=== PATIENT | female | born 1950 | race Caucasian/White ===

== ENCOUNTER 2017-04-23 20:50 | Outpatient (CLI) | payer MEDICARE | END 2017-04-23 20:51 | disposition critical access hospital (66) | LOC: EMS 20:50 | PROVIDERS: ATTEND Surgery | DX: R53.1 Weakness (principal); R26.89 Other abnormalities of gait and mobility; R05 Cough | CPT/HCPCS: A0425; A0427 ==

== ENCOUNTER 2017-04-23 21:22 | Emergency (ER) | payer MEDICARE ==
[2017-04-23] MEDS ORDERED: SODIUM CHLORIDE 0.9% 1,000 ML IV ONE ×4 (21:31→22:46)
[2017-04-23] MEDS ORDERED: methylPREDNISolone SUCCINATE 125 MG/2 ML VIAL IVP STA (21:32)
[2017-04-23] MEDS ORDERED: IPRATROPIUM/ALBUTEROL 3 ML NEB INH STA (21:32)
[2017-04-23 21:55] LABS: BASOPHILS % (AUTO) 0.7 %; EOSINOPHILS # (AUTO) 0.1 10^3/uL (0.0-0.7); EOSINOPHILS % (AUTO) 1.2 %; HGB - HEMOGLOBIN 8.6 g/dL (12.0-16.0); LYMPHOCYTES # (AUTO) 1.6 10^3/uL (1.5-3.5); LYMPHOCYTES % (AUTO) 22.6 %; MEAN CORPUSCULAR HEMOGLOBIN 38.9 pg (27.0-31.0); MEAN CORPUSCULAR HGB CONC 34.1 g/dL (32.0-36.0); MEAN CORPUSCULAR VOLUME 114.1 fL (81.0-99.0); MEAN PLATELET VOLUME 7.1 fL (7.9-10.8); MONOCYTES # (AUTO) 0.8 10^3/uL (0.0-1.0); MONOCYTES % (AUTO) 10.7 %; NEUTROPHILS # (AUTO) 4.7 10^3/uL (1.5-6.6); NEUTROPHILS % (AUTO) 64.8 %; PLT - PLATELET COUNT 244 10^3/uL (130-450); RED CELL DISTRIBUTION WIDTH 13.5 % (12.0-15.0); WHITE BLOOD COUNT 7.2 x10^3/uL (4.8-10.8)
--- NOTE | 2017-04-23 21:56 | ED Physician Documentation ---
PD HPI URI - Stated complaint Stated Complaint: COUGH, WEAKNESS, HYPOTENSION - Chief complaint Chief Complaint: Resp - History obtained from History obtained from: Patient, EMS - History of Present Illness Timing - onset: How many days ago (3) Timing duration: Days (3) Timing details: Gradual onset Pain level max: 8 Pain level now: 8 Associated symptoms: Nasal congestion, Rhinorrhea, Dry cough. No: Fever, Chills , Hemoptysis, Chest pain, Dyspnea Contributing factors: Sick contact, COPD / asthma Improves by: Rest, MDI/nebulizer (hasn't used her inhalers in 3 weeks) Worsened by: Activity, Breathing - Additional information Additional information: felt lightheaded and dizzy today. found to have hypotension on scene 80/40 given 500ml NS. no change. Review of Systems Ten Systems: 10 systems reviewed and negative Constitutional: denies: Fever, Chills Nose: reports: Rhinorrhea / runny nose, Congestion Cardiac: reports: Chest pain / pressure (tightness) Respiratory: reports: Dyspnea, Cough, Wheezing GI: denies: Abdominal Pain, Nausea, Vomiting, Diarrhea : denies: Dysuria Skin: denies: Rash Musculoskeletal: denies: Neck pain, Back pain Neurologic: denies: Headache PD PAST MEDICAL HISTORY - Past Medical History Past Medical History: Yes Respiratory: COPD Other Past Medical History: anemia, chronic renal disease - Present Medications Home Medications: Ambulatory Orders Medication Instructions Recorded Confirmed Albuterol Sulfate [Proair Hfa 2 puffs IH Q4HR PRN 04/23/17 04/23/17 Inhaler] Aspirin EC [Ecotrin] 1 tab PO DAILY 04/23/17 04/23/17 Atorvastatin Calcium 1 tab PO DAILY 04/23/17 04/23/17 Calcium Citrate/Vitamin D3 1 tab PO DAILY 04/23/17 04/23/17 [Calcium Citrate-Vit D3 Tablet] Cholecalciferol (Vitamin D3) 1 cap PO BID 04/23/17 04/23/17 [Vitamin D3] Cyanocobalamin (Vitamin B-12) 1 tab PO QPM 04/23/17 04/23/17 [Vitamin B-12] Doxepin HCl 1 cap PO BID 04/23/17 04/23/17 Duloxetine HCl 1 cap PO QPM 04/23/17 04/23/17 Ferrous Sulfate 1 tab PO QPM 04/23/17 04/23/17 Gabapentin 1 tab PO BID 04/23/17 04/23/17 Hydrocodone/Acetaminophen [Vicodin 1 tab PO TID 04/23/17 04/23/17 5-300 mg Tablet] Hydroxyurea 1 cap PO DAILY 04/23/17 04/23/17 Levothyroxine Sodium 1 tab PO DAILY 04/23/17 04/23/17 Metoprolol Succinate 1 tab PO QPM 04/23/17 04/23/17 Morphine ER 1 tab PO TID 04/23/17 04/23/17 SUMAtriptan succinate [Sumatriptan 100 mg PO DAILY 04/23/17 04/23/17 Succinate] Tizanidine HCl [Zanaflex] 1 cap PO TID 04/23/17 04/23/17 hydroCHLOROthiazide 1 tab PO DAILY 04/23/17 04/23/17 [Hydrochlorothiazide] raNITIdine HCl [Ranitidine HCl] 1 cap PO BID 04/23/17 04/23/17 - Allergies Allergies/Adverse Reactions: Allergies Allergy/AdvReac Type Severity Reaction Status Date / Time No Known Drug Allergies Allergy Verified 04/23/17 21:29 - Living Situation Living Situation: reports: With family Living Arrangement: reports: At home - Social History Does the pt smoke?: Yes Does the pt have substance abuse?: No - Family History Family history: reports: Non contributory PD ED PE NORMAL - Vitals Vital signs reviewed: Yes - General General: Alert and oriented X 3, No acute distress - HEENT HEENT: PERRL, Moist mucous membranes - Neck Neck: Supple, no meningeal sign - Cardiac Cardiac: RRR, Strong equal pulses - Respiratory Respiratory: No respiratory distress, Other (wheezing B) - Abdomen Abdomen: Soft, Non tender, Non distended - Derm Derm: Warm and dry, No rash - Extremities Extremities: No edema, No calf tenderness / cord - Neuro Neuro: Alert and oriented X 3 - Psych Psych: Normal mood Results - Vitals Vitals: Vital Signs - 24 hr 04/23/17 04/23/17 04/23/17 21:24 21:50 22:20 Temperature 36.4 C L Heart Rate 83 78 79 Respiratory 30 H 20 16 Rate Blood Pressure 80/56 L 115/99 H O2 Saturation 99 100 04/23/17 04/23/17 04/24/17 22:52 23:32 00:00 Temperature Heart Rate 75 78 Respiratory 13 22 Rate Blood Pressure 73/57 L 89/67 L 116/79 O2 Saturation 93 100 Oxygen O2 Source Nasal cannula Oxygen Flow Rate 4 - EKG (time done) 2127 Rate: Rate (enter#) (79) Rhythm: Sinus tachycardia Sarah: Normal Intervals: Normal MI QRS: Normal Ischemia: Normal ST segments - Labs Labs: Laboratory Tests 04/23/17 04/23/17 04/23/17 21:43 21:43 21:43 WBC 7.2 RBC 2.20 L Hgb 8.6 L Hct 25.1 L MCV 114.1 H MCH 38.9 H MCHC 34.1 RDW 13.5 Plt Count 244 MPV 7.1 L Neut # 4.7 Lymph # 1.6 Rock # 0.8 Eos # 0.1 Baso # 0.0 Absolute Nucleated RBC 0.00 Nucleated RBC % 0.0 Manual Slide Review Indicated Platelet Estimate NORMAL (130-450,000) RBC Morph Micro Appear 1+ STOMATOCYTES Sodium 130 L Potassium 4.4 Chloride 94 L Carbon Dioxide 19 L Anion Gap 17.0 H BUN 40 H Creatinine 3.4 H Estimated GFR (MDRD) 14 L Glucose 124 H Lactic Acid 1.8 Calcium 8.0 L Total Bilirubin 0.4 AST 43 H ALT 22 Alkaline Phosphatase 48 Troponin I Total Protein 6.3 L Albumin 3.5 Globulin 2.8 Albumin/Globulin Ratio 1.3 Lipase 20 L 04/23/17 21:43 WBC RBC Hgb Hct MCV MCH MCHC RDW Plt Count MPV Neut # Lymph # Rock # Eos # Baso # Absolute Nucleated RBC Nucleated RBC % Manual Slide Review Platelet Estimate RBC Morph Micro Appear Sodium Potassium Chloride Carbon Dioxide Anion Gap BUN Creatinine Estimated GFR (MDRD) Glucose Lactic Acid Calcium Total Bilirubin AST ALT Alkaline Phosphatase Troponin I 1.76 H* Total Protein Albumin Globulin Albumin/Globulin Ratio Lipase - Rads (name of study) cxr Radiology: Prelim report reviewed, EMP read contemporaneously, See rad report ( Left upper lobe emphysema. Improved aeration through the left lung base region. Blunting of the left lateral costophrenic sulcus region may be due to pleural thickening or scarring. Small effusion difficult to exclude. 3. There is a 9 mm right upper lobe paramediastinal nodule. This is indeterminate. Further assessment recommended with a nonemergent outpatient noncontrast chest CT. ) PD MEDICAL DECISION MAKING - ED course Complexity details: reviewed results, re-evaluated patient, considered differential, d/w patient, d/w healthcare network pricing consultant ED course: Patient is a 66-year-old female who presents to the emergency department with what initially sounded like a COPD flare, feels better after steroids and nebulizer treatment. No acute findings on EKG, however troponin came back significantly elevated. She was then started on a heparin drip. There are no beds at [facility]. [facility] in [place] I discussed with Dr. Vigil, cardiology at 2330 who recommends admission to the hospitalist. Then discussed with Dr. Coleman at 2345 who was concerned about her hypotension and recommend I talked to the ICU doctor. Talk to Dr. Leach at midnight and recommends admission to the hospitalist. Dr. Coleman then called back and graciously accepted in transfer. Patient took aspirin prior to arrival. Patient transferred to [facility] in [place]. This document was made in part using voice recognition software. While efforts are made to proofread this document, sound alike and grammatical errors may occur. Departure - Departure Disposition: 02 Transfer Acute Care Hosp Clinical Impression: COPD exacerbation, NSTEMI (non-ST elevated myocardial infarction) Hypotension Qualifiers: Hypotension type: unspecified hypotension type Qualified Code(s): I95.9 - Hypotension, unspecified Anemia Qualifiers: Anemia type: unspecified type Qualified Code(s): D64.9 - Anemia, unspecified Condition: Stable
[2017-04-23 22:04] LABS: ALBUMIN 3.5 g/dL (3.2-5.5); ALBUMIN/GLOBULIN RATIO 1.3 (1.0-2.2); BILIRUBIN,TOTAL 0.4 mg/dL (0.2-1.0); CREATININE 3.4 mg/dL (0.4-1.0); TOTAL PROTEIN 6.3 g/dL (6.7-8.2)
--- NOTE | 2017-04-23 22:16 | XRAY Preliminary Report ---
Exam: XR CHEST 1 VIEW X-RAY IMPRESSION: 1. Left upper lobe emphysema. 2. Improved aeration within the left lung base region. Blunting of the left lateral costophrenic sulc us region may be due to low thickening or scarring. Small effusion difficult to exclude. 3. There is a 9 mm right upper lobe paramediastinal nodule. This is indeterminate. Further assessment recommended with a nonemergent outpatient noncontrast chest CT. [facility] SITE ID: [id number]
[2017-04-23 22:18] LABS: PLATELET ESTIMATE, MANUAL NORMAL (130-450,000) (NORMAL)
--- NOTE | 2017-04-23 22:21 | XRAY Report ---
EXAM: CHEST RADIOGRAPHY EXAM DATE: 04/23/2017 09:52 PM. CLINICAL HISTORY: Cough and hypertension. COMPARISON: 02/11/2010. TECHNIQUE: 1 view. FINDINGS: Lungs/Pleura: There is a small nodular focus within the right upper lobe adjacent to the right pulmon alia hilum. Previously there was a small irregular density at this location. This measures up to 9 mm in diameter. Left lateral costophrenic sulcus region blunting is again noted. Improved aeration in th e left lung base region from the prior study. There is no definite evidence of a pneumothorax. Mediastinum: Within exam limitations, the cardiomediastinal contour is normal. Other: Chronic calcific rotator cuff tendinitis on the right. There is a pin utilized for fixation of a left clavicular fracture. IMPRESSION: 1. Left upper lobe emphysema. 2. Improved aeration through the left lung base region. Blunting of the left lateral costophrenic sul cus region may be due to pleural thickening or scarring. Small effusion difficult to exclude. 3. There is a 9 mm right upper lobe paramediastinal nodule. This is indeterminate. Further assessment recommended with a nonemergent outpatient noncontrast chest CT. [facility] Referring Provider Line: [phone] SITE ID: [id number]
[2017-04-23] MEDS ORDERED: ACETAMINOPHEN 325 MG TABLET PO PRN (22:46)
[2017-04-23] MEDS ORDERED: SODIUM CHLORIDE FLUSH 0.9% 10 ML SYRINGE IVP PRN (22:46)
[2017-04-23] MEDS ORDERED: ONDANSETRON 4 MG/2 ML VIAL IVP PRN (22:46)
[2017-04-23] MEDS ORDERED: PROCHLORPERAZINE 10 MG/2 ML VIAL IVP PRN (22:46)
[2017-04-23] MEDS ORDERED: HYDROcod/ACETAM 5/325 MG TABLET PO PRN (22:46)
[2017-04-23] MEDS ORDERED: IPRATROPIUM/ALBUTEROL 3 ML NEB INH PRN (22:46)
[2017-04-23] MEDS ORDERED: SODIUM CHLORIDE 0.9% 1,000 ML IV SCH (23:00)
[2017-04-23] MEDS ORDERED: HEPARIN 25,000 UNITS/500 ML NS 25,000 UNIT/500 ML BAG IV STA (23:16)
[2017-04-23] MEDS ORDERED: HEPARIN 5,000 UNIT/ML VIAL IVP ONE (23:16)
[2017-04-24] MEDS ORDERED: ASPIRIN CHEW 81 MG TABLET PO STA (00:20)
[2017-04-24 01:28] VITALS: BP 106/82
[2017-04-24] MEDS ORDERED: methylPREDNISolone SUCCINATE 40 MG/ML VIAL IVP SCH (06:00)
[2017-04-24] MEDS ORDERED: SODIUM CHLORIDE FLUSH 0.9% 10 ML SYRINGE IVP SCH (06:00)
[2017-04-24] MEDS ORDERED: LEVOTHYROXINE 88 MCG TABLET PO SCH (09:00)
[2017-04-24] MEDS ORDERED: ENOXAPARIN 40 MG/0.4 ML SYRINGE SUBQ SCH (09:00)
[2017-04-24] MEDS ORDERED: ASPIRIN EC 325 MG TABLET PO SCH (09:00)
[2017-04-24] MEDS ORDERED: POLYETHYLENE GLYCOL 3350 17 GM PACKET PO SCH (09:00)
[2017-04-24] MEDS ORDERED: FAMOTIDINE 20 MG TABLET PO SCH (09:00)
[2017-04-24] MEDS ORDERED: HYDROXYUREA 500 MG CAPSULE PO SCH (09:00)
[2017-04-24] MEDS ORDERED: ATORVASTATIN CALCIUM PO SCH (09:00)
[2017-04-24] MEDS ORDERED: FERROUS SULFATE 325 MG TABLET PO SCH (21:00)
[2017-04-24] MEDS ORDERED: CYANOCOBALAMIN PO SCH (21:00)
[2017-04-24] MEDS ORDERED: DULOXETINE HCL PO SCH (21:00)
== END 2017-04-24 01:30 | disposition short-term general hospital (02) ==
LOC: EDUNIT# → ED 21:22
DX: J44.1 Chronic obstructive pulmonary disease with (acute) exacerbation (principal); I21.4 Non-ST elevation (NSTEMI) myocardial infarction; I95.9 Hypotension, unspecified; D64.9 Anemia, unspecified; N18.9 Chronic kidney disease, unspecified; Z79.82 Long term (current) use of aspirin
CPT/HCPCS: 36415; 71045; 80053; 83605; 83690; 84484; 85025; 93005; 94640; 96361; 96365; 96375; 99285; A9270; J7620

== ENCOUNTER 2017-04-24 01:20 | Outpatient (CLI) | payer MEDICARE | END 2017-04-24 01:21 | disposition short-term general hospital (02) | LOC: EMS 01:20 | PROVIDERS: ATTEND Surgery | DX: I21.4 Non-ST elevation (NSTEMI) myocardial infarction (principal) | CPT/HCPCS: A0425; A0426 ==

== ENCOUNTER 2020-08-18 12:51 | Outpatient (CLI) | payer MEDICARE, OTHER ==
[2020-08-18 14:53] LABS: CALCIUM 9.3 mg/dL (8.5-10.3); CREATININE 1.1 mg/dL (0.4-1.0); PHOSPHORUS 3.8 mg/dL (2.5-4.6); POTASSIUM 4.9 mmol/L (3.5-5.0)
== END 2020-08-18 12:52 | disposition home or self-care (01) ==
LOC: LAB.S 12:51
PROVIDERS: ATTEND Internal Medicine Cardiovascular Disease
DX: I50.31 Acute diastolic (congestive) heart failure (principal)
CPT/HCPCS: 36415; 80069

== ENCOUNTER 2021-01-11 05:22 | Outpatient (CLI) | payer MEDICARE, OTHER | END 2021-01-11 05:23 | disposition short-term general hospital (02) | LOC: EMS 05:22 | DX: R07.9 Chest pain, unspecified (principal); M54.2 Cervicalgia; R06.00 Dyspnea, unspecified; R61 Generalized hyperhidrosis | CPT/HCPCS: A0425; A0427 ==

== ENCOUNTER 2021-04-10 02:25 | Emergency (ER) | payer MEDICARE, OTHER ==
[2021-04-10] MEDS ORDERED: SODIUM CHLORIDE 0.9% 250 ML IV STA (02:34)
--- NOTE | 2021-04-10 02:40 | ED Physician Documentation ---
History of Present Illness - Stated complaint Stated Complaint: SOA - History obtained from History obtained from: Patient, EMS - Additonal information Additional information: 70yF with pmh copd on home o2 2L nc, SD with stents in 2018, ckd 3/4 , p/w n/v/d nbnb and nonbloody for the past couple days a/w fever, productive cough, and soa, which acutely worsened tonight. patient called ems and was found to be tachycardic with MAT on EKG rhythm strip, hypoxic to low 80s and tachypneic. 2 duoneb treatments and 125 IV solumedrol as well as 300 cc NS was administered en route. patient still SOA on arrival, complaining of chest tightness. endorses fever of 101.6 at home last night. Review of Systems Ten Systems: 10 systems reviewed and negative Constitutional: reports: Fever, Chills Cardiac: denies: Chest pain / pressure Respiratory: reports: Dyspnea, Cough GI: reports: Nausea, Vomiting PD PAST MEDICAL HISTORY - Past Medical History Cardiovascular: Hypertension, High cholesterol Respiratory: COPD Endocrine/Autoimmune: HyPOthyroidism GI: GERD : None Psych: Depression, Anxiety Musculoskeletal: Osteoarthritis, Fibromyalgia, Rheumatoid arthritis, Fatigue, Chronic back pain - Past Surgical History Past Surgical History: Yes General: Appendectomy, Bowel surgery Ortho: Other HEENT: Tonsil/Adenoidectomy - Present Medications Home Medications: Ambulatory Orders Medication Instructions Recorded Confirmed Albuterol Sulfate [Proair Hfa 2 puffs IH Q4HR PRN 04/23/17 04/23/17 Inhaler] Aspirin EC [Ecotrin] 1 tab PO DAILY 04/23/17 04/23/17 Atorvastatin Calcium 1 tab PO DAILY 04/23/17 04/23/17 Calcium Citrate/Vitamin D3 1 tab PO DAILY 04/23/17 04/23/17 [Calcium Citrate-Vit D3 Tablet] Cholecalciferol (Vitamin D3) 1 cap PO BID 04/23/17 04/23/17 [Vitamin D3] Cyanocobalamin (Vitamin B-12) 1 tab PO QPM 04/23/17 04/23/17 [Vitamin B-12] Doxepin HCl 1 cap PO BID 04/23/17 04/23/17 Duloxetine HCl 1 cap PO QPM 04/23/17 04/23/17 Ferrous Sulfate 1 tab PO QPM 04/23/17 04/23/17 Gabapentin 1 tab PO BID 04/23/17 04/23/17 Hydrocodone/Acetaminophen [Vicodin 1 tab PO TID 04/23/17 04/23/17 5-300 mg Tablet] Hydroxyurea 1 cap PO DAILY 04/23/17 04/23/17 Levothyroxine Sodium 1 tab PO DAILY 04/23/17 04/23/17 Metoprolol Succinate 1 tab PO QPM 04/23/17 04/23/17 Morphine ER [Morphine Sulfate ER] 1 tab PO TID 04/23/17 04/23/17 SUMAtriptan succinate [Sumatriptan 100 mg PO DAILY 04/23/17 04/23/17 Succinate] Tizanidine HCl [Zanaflex] 1 cap PO TID 04/23/17 04/23/17 hydroCHLOROthiazide 1 tab PO DAILY 04/23/17 04/23/17 [Hydrochlorothiazide] raNITIdine HCL [Ranitidine HCl] 1 cap PO BID 04/23/17 04/23/17 - Allergies Allergies/Adverse Reactions: Allergies Allergy/AdvReac Type Severity Reaction Status Date / Time No Known Drug Allergies Allergy Verified 04/10/21 02:46 - Social History Does the pt smoke?: Yes Smoking Status: Never smoker Does the pt drink ETOH?: Yes Does the pt have substance abuse?: No - Immunizations Immunizations are current?: Yes PD ED PE NORMAL - Vitals Vital signs reviewed: Yes - General General: Other (pale appearing, uncomfortable appearing) - HEENT HEENT: Atraumatic, PERRL, EOMI - Neck Neck: Supple, no meningeal sign - Cardiac Cardiac: Other (tachycardic rate, intermittently irregular rhythm) - Respiratory Respiratory: Other (BL rhonchi) - Abdomen Abdomen: Non tender, Non distended - Rectal Rectal: Deferred - Derm Derm: Other (pale and clammy) - Extremities Extremities: No deformity - Neuro Neuro: No motor deficit, No sensory deficit - Psych Psych: Normal mood, Normal affect Results - Vitals Vitals: Vital Signs - 24 hr 04/10/21 04/10/21 04/10/21 02:26 02:46 02:50 Temperature 38.1 C H Heart Rate 140 H 139 H Respiratory 31 H 25 H 32 H Rate Blood Pressure 98/63 93/68 O2 Saturation 86 L 04/10/21 04/10/21 04/10/21 03:00 03:15 03:23 Temperature 35.9 C L Heart Rate 161 H 136 H 148 H Respiratory 23 22 20 Rate Blood Pressure 64/51 L 80/50 L 83/49 L O2 Saturation 96 98 04/10/21 04/10/21 04:00 04:44 Temperature Heart Rate 132 H Respiratory 19 20 Rate Blood Pressure 66/49 L 92/67 O2 Saturation 91 L 94 Oxygen O2 Source Oxymask Oxygen Flow Rate 15 - Labs Labs: Laboratory Tests 04/10/21 04/10/21 04/10/21 02:34 03:00 03:15 WBC 8.7 RBC 2.57 L Hgb 9.1 L Hct 28.6 L MCV 111.3 H MCH 35.4 H MCHC 31.8 L RDW 13.0 Plt Count 196 MPV 10.5 Neut # (Auto) Not Reportable Lymph # (Auto) Not Reportable [place] # (Auto) Not Reportable Eos # (Auto) Not Reportable Baso # (Auto) Not Reportable Absolute Nucleated RBC Not Reportable Total Counted 100 Band Neuts % (Manual) 10 Abnorm Lymph % (Manual) 0 Nucleated RBC % Not Reportable Neutrophils # (Manual) 7.0 H Lymphocytes # (Manual) 0.8 L Monocytes # (Manual) 0.9 Eosinophils # (Manual) 0.0 Basophils # (Manual) 0.0 Differential Comment MANUAL DIFFERENTIAL WBC Morphology NORMAL APPEARANCE Platelet Estimate NORMAL (130-450,000) Platelet Morphology NORMAL APPEARANCE RBC Morph Micro Appear NORMAL APPEARANCE Bld Gas Analysis Time 0306 Sample Site RIGHT RADIAL ABG pH 7.30 L ABG pCO2 18 L* ABG pO2 59 L ABG HCO3 8.9 L ABG Total CO2 9.4 L* ABG O2 Saturation 86 L* ABG Base Excess -16.3 L Jorge Alberto Test POSITIVE VBG pH VBG pCO2 VBG pO2 VBG HCO3 VBG Total CO2 VBG O2 Saturation VBG Base Excess O2 Delivery Device NON REBREATHER MASK FiO2 80.00 Sodium Potassium Chloride Carbon Dioxide Anion Gap BUN Creatinine Estimated GFR (MDRD) Glucose Lactic Acid Calcium Total Bilirubin AST ALT Alkaline Phosphatase Troponin I High Sens B-Natriuretic Peptide Total Protein Albumin Globulin Albumin/Globulin Ratio Lipase Nasal Adenovirus (PCR) NOT DETECTED Nasal B. parapertussis DNA (PCR) NOT DETECTED Nasal Coronavir 229E PCR NOT DETECTED Nasal Coronavir HKU1 PCR NOT DETECTED Nasal Coronavir NL63 PCR NOT DETECTED Nasal Coronavir OC43 PCR NOT DETECTED Nasal Enterovir/Rhinovir PCR NOT DETECTED Nasal Influenza B PCR NOT DETECTED Nasal Influenza A PCR NOT DETECTED Nasal Parainfluen 1 PCR NOT DETECTED Nasal Parainfluen 2 PCR NOT DETECTED Nasal Parainfluen 3 PCR NOT DETECTED Nasal Parainfluen 4 PCR NOT DETECTED Nasal RSV (PCR) NOT DETECTED Nasal B.pertussis DNA PCR NOT DETECTED Nasal C.pneumoniae (PCR) NOT DETECTED Dillon Human Metapneumo PCR NOT DETECTED Nasal M.pneumoniae (PCR) NOT DETECTED Nasal SARS-CoV-2 (PCR) NOT DETECTED 04/10/21 04/10/21 04/10/21 03:15 03:15 03:15 WBC RBC Hgb Hct MCV MCH MCHC RDW Plt Count MPV Neut # (Auto) Lymph # (Auto) [place] # (Auto) Eos # (Auto) Baso # (Auto) Absolute Nucleated RBC Total Counted Band Neuts % (Manual) Abnorm Lymph % (Manual) Nucleated RBC % Neutrophils # (Manual) Lymphocytes # (Manual) Monocytes # (Manual) Eosinophils # (Manual) Basophils # (Manual) Differential Comment WBC Morphology Platelet Estimate Platelet Morphology RBC Morph Micro Appear Bld Gas Analysis Time Sample Site ABG pH ABG pCO2 ABG pO2 ABG HCO3 ABG Total CO2 ABG O2 Saturation ABG Base Excess Jorge Alberto Test VBG pH 7.331 VBG pCO2 37.6 L VBG pO2 150.1 H VBG HCO3 19.4 L VBG Total CO2 20.6 L VBG O2 Saturation 98.5 H VBG Base Excess -5.9 L O2 Delivery Device FiO2 Sodium Potassium Chloride Carbon Dioxide Anion Gap BUN Creatinine Estimated GFR (MDRD) Glucose Lactic Acid 4.5 H* Calcium Total Bilirubin AST ALT Alkaline Phosphatase Troponin I High Sens B-Natriuretic Peptide 297 H Total Protein Albumin Globulin Albumin/Globulin Ratio Lipase Nasal Adenovirus (PCR) Nasal B. parapertussis DNA (PCR) Nasal Coronavir 229E PCR Nasal Coronavir HKU1 PCR Nasal Coronavir NL63 PCR Nasal Coronavir OC43 PCR Nasal Enterovir/Rhinovir PCR Nasal Influenza B PCR Nasal Influenza A PCR Nasal Parainfluen 1 PCR Nasal Parainfluen 2 PCR Nasal Parainfluen 3 PCR Nasal Parainfluen 4 PCR Nasal RSV (PCR) Nasal B.pertussis DNA PCR Nasal C.pneumoniae (PCR) Dillon Human Metapneumo PCR Nasal M.pneumoniae (PCR) Nasal SARS-CoV-2 (PCR) 04/10/21 04/10/21 03:19 03:19 WBC RBC Hgb Hct MCV MCH MCHC RDW Plt Count MPV Neut # (Auto) Lymph # (Auto) [place] # (Auto) Eos # (Auto) Baso # (Auto) Absolute Nucleated RBC Total Counted Band Neuts % (Manual) Abnorm Lymph % (Manual) Nucleated RBC % Neutrophils # (Manual) Lymphocytes # (Manual) Monocytes # (Manual) Eosinophils # (Manual) Basophils # (Manual) Differential Comment WBC Morphology Platelet Estimate Platelet Morphology RBC Morph Micro Appear Bld Gas Analysis Time Sample Site ABG pH ABG pCO2 ABG pO2 ABG HCO3 ABG Total CO2 ABG O2 Saturation ABG Base Excess Jorge Alberto Test VBG pH VBG pCO2 VBG pO2 VBG HCO3 VBG Total CO2 VBG O2 Saturation VBG Base Excess O2 Delivery Device FiO2 Sodium 136 Potassium 3.1 L Chloride 99 L Carbon Dioxide 20 L Anion Gap 17.0 H BUN 33 H Creatinine 1.6 H Estimated GFR (MDRD) 32 L Glucose 119 H Lactic Acid Calcium 7.7 L Total Bilirubin 0.7 AST 104 H ALT 43 Alkaline Phosphatase 55 Troponin I High Sens 1808.5 H* B-Natriuretic Peptide Total Protein 5.7 L Albumin 2.7 L Globulin 3.0 Albumin/Globulin Ratio 0.9 L Lipase 21 L Nasal Adenovirus (PCR) Nasal B. parapertussis DNA (PCR) Nasal Coronavir 229E PCR Nasal Coronavir HKU1 PCR Nasal Coronavir NL63 PCR Nasal Coronavir OC43 PCR Nasal Enterovir/Rhinovir PCR Nasal Influenza B PCR Nasal Influenza A PCR Nasal Parainfluen 1 PCR Nasal Parainfluen 2 PCR Nasal Parainfluen 3 PCR Nasal Parainfluen 4 PCR Nasal RSV (PCR) Nasal B.pertussis DNA PCR Nasal C.pneumoniae (PCR) Dillon Human Metapneumo PCR Nasal M.pneumoniae (PCR) Nasal SARS-CoV-2 (PCR) Procedures - Central Line Central Line Preparation: Time out completed, Ultrasound used, Sterile prep and drape Central line location: Right Femoral Central line type: Triple lumen Central line aftercare: Chlorhexidine disc placed, Secured, Placement confirmed, No complications, Pt tolerated well PD MEDICAL DECISION MAKING - ED course ED course: Patient had booster covid-19 vaccine saturday. d/w who states patient has been vomiting, soa, coughing up phlegm since yesterday. she had a mild heart attack two years ago and went to [facility] for three days. 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 she has no history of heart failure. He does not have any kidney problems that he knows of. She is full code. Patient hypotensive, responsive to fluids but then immediately dipping down into 60/40s again. Patient received 500cc ivf in the ed in addition to 300cc in the field and is persistently hypotensive, tachypneic with wet sounding breathing. Lung ultrasound with significant B lines concerning for fluid overload therefore levophed drip was started in lieu of 30cc/kg bolus. R femoral central line emergently placed. d/w Dr. Ramesh, ED MD at [facility] who accepts in transfer. Departure - Departure Disposition: 02 Transfer Acute Care Hosp Clinical Impression: NSTEMI (non-ST elevated myocardial infarction), Pneumonia, Sepsis Condition: Serious
[2021-04-10] MEDS ORDERED: ALBUTEROL NEB 2.5 MG/3 ML INH ONE (02:42)
[2021-04-10] MEDS ORDERED: AZITHROMYCIN INJ 500 MG in SODIUM CHLORIDE 0.9% 250 ML IV STA (02:49)
[2021-04-10] MEDS ORDERED: cefTRIAXone 1 GM in SODIUM CHLORIDE 0.9% MINIBAG 100 ML IV STA (02:49)
[2021-04-10] MEDS ORDERED: ALBUTEROL NEB 2.5 MG/3 ML INH STA (02:54)
[2021-04-10] MEDS ORDERED: SODIUM CHLORIDE 0.9% 1,000 ML IV STA ×2 (03:04→03:05)
[2021-04-10] MEDS ORDERED: cefTRIAXone 1 GM VIAL ONE (03:15)
[2021-04-10 03:16] LABS: ABG BASE EXCESS -16.3 mmol/L (-2.0-3.0); ABG HCO3 8.9 mmol/L (22.0-26.0); ABG PO2 59 mmHg (80-100); ALLEN TEST POSITIVE
[2021-04-10 03:19] LABS: ABG OXYGEN SATURATION 86 % (94-98); ABG PCO2 18 mmHg (34-45); ABG TCO2 9.4 MMOL/L (21.0-29.0)
[2021-04-10 03:36] LABS: ALBUMIN 2.7 g/dL (3.2-5.5); ALBUMIN/GLOBULIN RATIO 0.9 (1.0-2.2); BILIRUBIN,TOTAL 0.7 mg/dL (0.2-1.0); CALCIUM 7.7 mg/dL (8.5-10.3); CREATININE 1.6 mg/dL (0.4-1.0); POTASSIUM 3.1 mmol/L (3.5-5.0); TOTAL PROTEIN 5.7 g/dL (6.7-8.2)
[2021-04-10 03:52] LABS: BASOPHILS % (AUTO) 0.2 %; EOSINOPHILS % (AUTO) 0.3 %; HCT - HEMATOCRIT 28.6 % (37.0-47.0); HGB - HEMOGLOBIN 9.1 g/dL (12.0-16.0); LYMPHOCYTES % (AUTO) 7.7 %; MEAN CORPUSCULAR HEMOGLOBIN 35.4 pg (27.0-31.0); MEAN CORPUSCULAR HGB CONC 31.8 g/dL (32.0-36.0); MEAN CORPUSCULAR VOLUME 111.3 fL (81.0-99.0); MEAN PLATELET VOLUME 10.5 fL (7.9-10.8); MONOCYTES % (AUTO) 9.5 %; PLT - PLATELET COUNT 196 10^3/uL (130-450); RED BLOOD COUNT 2.57 10^6/uL (4.20-5.40); WHITE BLOOD COUNT 8.7 x10^3/uL (4.8-10.8)
[2021-04-10] MEDS ORDERED: ASPIRIN 325 MG TABLET PO ONE (03:56)
[2021-04-10 03:57] LABS: ABNORMAL LYMPHS % (MANUAL) 0 %
[2021-04-10 03:59] LABS: VBG BASE EXCESS -5.9 mmol/L (-2 - +2); VBG HCO3 19.4 mmol/L (23-28); VBG OXYGEN SATURATION 98.5 % (60-80); VBG PCO2 37.6 mmHg (41-51); VBG PH 7.331 (7.31-7.41); VBG PO2 150.1 mmHg (25-47); VBG TOTAL CO2 20.6 mmol/L (24-29)
[2021-04-10] MEDS ORDERED: ASPIRIN 325 MG TABLET PO STA (04:11)
[2021-04-10 04:12] LABS: B. PARAPERTUSSIS- RESP PCR PAN NOT DETECTED; B. PERTUSSIS- RESP PCR PANEL NOT DETECTED; C. PNEUMONIAE- RESP PCR PANEL NOT DETECTED; CORONAVIRUS 229E-RESP PCR NOT DETECTED; CORONAVIRUS HKU1-RESP PCR NOT DETECTED; CORONAVIRUS NL63-RESP PCR NOT DETECTED; CORONAVIRUS OC43-RESP PCR NOT DETECTED; HUMAN METAPNEUMOVIRUS NOT DETECTED; INFLUENZA A- RESP PCR PANEL NOT DETECTED; INFLUENZA B - RESP PCR PANEL NOT DETECTED; M. PNEUMONIAE- RESP PCR PANEL NOT DETECTED; PARAINFLUENZA VIRUS 1 NOT DETECTED; PARAINFLUENZA VIRUS 2 NOT DETECTED; PARAINFLUENZA VIRUS 3 NOT DETECTED; PARAINFLUENZA VIRUS 4 NOT DETECTED; RHINOVIRUS/ENTEROVIRUS NOT DETECTED; RSV- RESP PCR PANEL NOT DETECTED; SARS-CoV-2 -RESP PCR PANEL NOT DETECTED
[2021-04-10] MEDS ORDERED: POTASSIUM CHLOR 20 MEQ/100 ML 20 MEQ/100 ML BAG IV ONE (04:13)
[2021-04-10 04:18] LABS: BAND NEUTROPHILS % (MANUAL) 10 %; DIFFERENTIAL COMMENT MANUAL DIFFERENTIAL; LYMPHOCYTES # (MANUAL) 0.8 10^3/uL (1.5-3.5); LYMPHOCYTES % (MANUAL) 9 %; MONOCYTES # (MANUAL) 0.9 10^3/uL (0.0-1.0); PLATELET ESTIMATE, MANUAL NORMAL (130-450,000) (NORMAL); PLATELET MORPHOLOGY NORMAL APPEARANCE (NORMAL); RBC MORPHOLOGY (MULTIPLE) NORMAL APPEARANCE (NORMAL); WBC MORPHOLOGY (MULTIPLE) NORMAL APPEARANCE (NORMAL)
[2021-04-10] MEDS ORDERED: HEPARIN 25000UNITS/500ML (D5W) 25,000 UNIT/500 ML BAG IV SCH (05:00)
[2021-04-10 05:11] VITALS: BP 94/67
--- NOTE | 2021-04-10 08:11 | XRAY Report ---
PROCEDURE: Chest 1 View X-Ray INDICATIONS: Chest Pain TECHNIQUE: One view of the chest was acquired. COMPARISON: Chest x-ray 04/23/2017 FINDINGS: Surgical changes and devices: Left clavicular fixation is noted. Lungs and pleura: Bibasilar opacities are present. There is blunting of the costophrenic angles bilat erally. Mediastinum: Mediastinal contours appear normal. Heart size is normal. Bones and chest wall: No suspicious bony lesions. Overlying soft tissues appear unremarkable. IMPRESSION: Costophrenic angle blunting consistent with effusions. Bibasilar opacities are present suggestive of effusions/edema. However developing areas of underlying pneumonia and/or atelectasis should be consid ered. The above findings are concordant with preliminary report. Reviewed by: Katelin Heredia MD on 04/10/2021 8:10 AM [facility] Approved by: Katelin Heredia MD on 04/10/2021 8:10 AM [facility] Station ID: [id number]
== END 2021-04-10 05:21 | disposition short-term general hospital (02) ==
LOC: EDUNIT# → ED 02:25 → SUPCPDRO 02:25 → ED 05:21
DX: I21.4 Non-ST elevation (NSTEMI) myocardial infarction (principal); A41.9 Sepsis, unspecified organism; J18.9 Pneumonia, unspecified organism; I10 Essential (primary) hypertension; Z20.822 Contact with and (suspected) exposure to COVID-19
CPT/HCPCS: 36415; 36556; 36600; 71045; 80053; 82803; 83605; 83690; 83880; 84484; 85025; 87040; 87631; 93005; 94640; 96365; 96366; 96368; 96375; 99285; A9270; 0202U; 85027

== ENCOUNTER 2022-07-06 14:45 | Outpatient (CLI) | payer MEDICARE, OTHER | END 2022-07-06 14:46 | disposition home or self-care (01) | LOC: LAB.S 14:45 | PROVIDERS: ATTEND Family Medicine | DX: F11.20 Opioid dependence, uncomplicated (principal) | CPT/HCPCS: 81599 ==

== ENCOUNTER 2022-09-03 14:04 | Outpatient (CLI) | payer MEDICARE, OTHER ==
[2022-09-03 19:46] LABS: BASOPHILS # (AUTO) 0.1 10^3/uL (0.0-0.1); BASOPHILS % (AUTO) 1.4 %; EOSINOPHILS # (AUTO) 0.3 10^3/uL (0.0-0.7); EOSINOPHILS % (AUTO) 5.1 %; HCT - HEMATOCRIT 38.6 % (37.0-47.0); HGB - HEMOGLOBIN 11.9 g/dL (12.0-16.0); LYMPHOCYTES # (AUTO) 1.7 10^3/uL (1.5-3.5); LYMPHOCYTES % (AUTO) 29.4 %; MEAN CORPUSCULAR HEMOGLOBIN 35.2 pg (27.0-31.0); MEAN CORPUSCULAR HGB CONC 30.8 g/dL (32.0-36.0); MEAN CORPUSCULAR VOLUME 114.2 fL (81.0-99.0); MONOCYTES # (AUTO) 0.7 10^3/uL (0.0-1.0); MONOCYTES % (AUTO) 12.5 %; NEUTROPHILS % (AUTO) 51.4 %; PLT - PLATELET COUNT 347 10^3/uL (130-450); RED BLOOD COUNT 3.38 10^6/uL (4.20-5.40); RED CELL DISTRIBUTION WIDTH 14.5 % (12.0-15.0); WHITE BLOOD COUNT 5.9 x10^3/uL (4.8-10.8)
[2022-09-03 19:47] LABS: SLIDE REVIEW? Indicated
[2022-09-03 19:53] LABS: ALBUMIN 4.2 g/dL (3.2-5.5); ALBUMIN/GLOBULIN RATIO 1.2 (1.0-2.2); BILIRUBIN,TOTAL 0.4 mg/dL (0.2-1.0); CALCIUM 9.7 mg/dL (8.5-10.3); CREATININE 1.3 mg/dL (0.4-1.0); POTASSIUM 4.3 mmol/L (3.5-5.0); TOTAL PROTEIN 7.6 g/dL (6.7-8.2)
[2022-09-03 21:26] LABS: PLATELET ESTIMATE, MANUAL NORMAL (130-450,000) (NORMAL); PLATELET MORPHOLOGY NORMAL APPEARANCE (NORMAL); RBC MORPHOLOGY (MULTIPLE) 1+ MACROCYTOSIS (NORMAL)
== END 2022-09-03 14:05 | disposition home or self-care (01) ==
LOC: LAB.S 14:04
PROVIDERS: ATTEND Internal Medicine Hematology & Oncology
DX: D47.3 Essential (hemorrhagic) thrombocythemia (principal)
CPT/HCPCS: 36415; 80053; 85025

== ENCOUNTER 2023-03-22 14:36 | Outpatient (CLI) | payer MEDICARE, OTHER | END 2023-03-22 14:37 | disposition home or self-care (01) | LOC: LAB.S 14:36 | PROVIDERS: ATTEND Internal Medicine Cardiovascular Disease | DX: I10 Essential (primary) hypertension (principal) | CPT/HCPCS: 36415; 84132 ==

== ENCOUNTER 2023-09-25 11:53 | Outpatient (CLI) | payer MEDICARE, OTHER | END 2023-09-25 23:59 | disposition short-term general hospital (02) | LOC: EMS 11:53 | DX: M54.9 Dorsalgia, unspecified (principal); R05.9 Cough, unspecified; R07.1 Chest pain on breathing; R09.3 Abnormal sputum; R50.9 Fever, unspecified; Z99.81 Dependence on supplemental oxygen; J44.9 Chronic obstructive pulmonary disease, unspecified | CPT/HCPCS: A0425; A0427 ==